=== PATIENT | male | born 1960 | race African-American/Black ===

== ENCOUNTER 2017-12-27 07:06 | Observation (INO) | payer BC ==
[~2017-12-27] VITALS: Ht 170.2 cm; Wt 86.3 kg
[2017-12-27] MEDS ORDERED: DIPHENHYDRAMINE 50 MG/ML, 1ML IVPush ONE (07:30)
[2017-12-27] MEDS ORDERED: DEXAMETHASONE 4 MG/ML, 1ML IVPush ONE (07:30)
[2017-12-27] MEDS ORDERED: SODIUM CHLORIDE FLUSH 10ML SYR IVF ONE (07:30)
[2017-12-27] MEDS ORDERED: FAMOTIDINE 20 MG/2 ML IVPush ONE (07:30)
[2017-12-27] MEDS ORDERED: DEXAMETHASONE 4 MG/ML, 1ML ONE (07:34)
[2017-12-27] MEDS ORDERED: FAMOTIDINE 20 MG/2 ML ONE (07:34)
[2017-12-27] MEDS ORDERED: DIPHENHYDRAMINE 50 MG/ML, 1ML ONE (07:42)
[2017-12-27 07:51] LABS: BASOPHILS # (AUTO) 0.06 x10^3/uL (0-0.1); BASOPHILS % (AUTO) 1 % (0-1); EOSINOPHILS # (AUTO) 0.14 x10^3/uL (0-0.4); EOSINOPHILS % (AUTO) 2 % (1-7); LYMPHOCYTES # (AUTO) 3.29 x10^3/uL (1-3.4); LYMPHOCYTES % (AUTO) 51 % (22-44); MD NO; MEAN CORPUSCULAR HEMOGLOBIN 30.1 pg (27.5-34.5); MEAN CORPUSCULAR HGB CONC 33.7 g/dL (33.2-36.2); MEAN CORPUSCULAR VOLUME 89.4 fL (81-97); MONOCYTES # (AUTO) 0.46 x10^3/uL (0.2-0.8); MONOCYTES % (AUTO) 7 % (2-9); NEUTROPHILS # (AUTO) 2.46 x10^3/uL (1.8-6.8); NEUTROPHILS % (AUTO) 38 % (42-75); PLATELET COUNT 213 x10^3/uL (130-400); RED BLOOD COUNT 4.86 x10^6/uL (4.38-5.82); RED CELL DISTRIBUTION WIDTH 12.9 % (9.4-14.8)
[2017-12-27 08:02] LABS: ANION GAP 9 mmol/L (5-15); CALCIUM 7.8 mg/dL (8.5-10.1); CHLORIDE 109 mmol/L (98-107); CREATININE 0.97 mg/dL (0.7-1.3)
[2017-12-27 11:55] VITALS: BP 124/75
[2017-12-27] MEDS ORDERED: ENOXAPARIN 40 MG/0.4 ML SQ SCH (12:00)
[2017-12-27] MEDS ORDERED: ONDANSETRON 2MG/ML, 2ML IVPush PRN (12:00)
[2017-12-27] MEDS ORDERED: ACETAMINOPHEN 325 MG TABLET PO PRN (12:00)
[2017-12-27 12:10] VITALS: BP 124/75
[2017-12-27 12:35] LABS: HEMOGLOBIN A1C 9.6 % (4.2-6.3)
[2017-12-27 14:12] VITALS: BP 131/85
[2017-12-27] MEDS: metFORMIN 850 MG TABLET PO SCH (16:12)
[2017-12-27] MEDS: DIPHENHYDRAMINE 25 MG CAPSULE PO SCH ×2 (16:12→20:54)
[2017-12-27] MEDS: INSULIN LISPRO 100 UNITS/ML, PEN SQ-INSULIN SCH ×2 (17:05→20:59)
[2017-12-27 19:29] VITALS: BP 133/74
[2017-12-27] MEDS: FAMOTIDINE 20 MG TABLET PO SCH (20:54)
[2017-12-28 02:14] VITALS: BP 132/84
[2017-12-28 07:05] VITALS: BP 123/74
[2017-12-28] MEDS: metFORMIN 850 MG TABLET PO SCH (07:43)
[2017-12-28] MEDS: INSULIN LISPRO 100 UNITS/ML, PEN SQ-INSULIN SCH ×2 (07:44→11:19)
[2017-12-28] MEDS: DIPHENHYDRAMINE 25 MG CAPSULE PO SCH (08:59)
[2017-12-28] MEDS: FAMOTIDINE 20 MG TABLET PO SCH (08:59)
[2017-12-28] MEDS ORDERED: DIPH25CA61 PO (11:37)
[2017-12-28] MEDS ORDERED: FAMO20TA7 PO (11:37)
[2017-12-28] MEDS ORDERED: METF850T PO (11:37)
== END 2017-12-28 12:40 | disposition home or self-care (01) ==
LOC: ED 09:21 → EDIP 09:28 → INTOOBSV 09:28 → 4NOR 11:49 → DCLOUNGE 12-28 12:29
PROVIDERS: ADMIT Internal Medicine Pulmonary Disease; ATTEND Internal Medicine
DX: T78.3XXA Angioneurotic edema, initial encounter (principal); E11.65 Type 2 diabetes mellitus with hyperglycemia; Z91.19 Patient's noncompliance with other medical treatment and regimen; Z87.891 Personal history of nicotine dependence
CPT/HCPCS: 36415; 80048; 82040; 82947; 82962; 83036; 85025; 86160; 86162; 96372; 96374; 96375; 99285; G0378; J1100; J1200; J1650; J1815; J7512; Q0163; S0028

== ENCOUNTER 2017-12-31 17:12 | Emergency (ER) | payer BC ==
[~2017-12-31] VITALS: Ht 170.2 cm; Wt 87.6 kg
[~2017-12-31 17:12] MED LIST: DIPH25CA61 PO; FAMO20TA7 PO; METF850T PO
[2017-12-31 17:13] VITALS: BP 128/79
[2017-12-31] MEDS ORDERED: SODIUM CHLORIDE FLUSH 10ML SYR IVF ONE (18:00)
[2017-12-31] MEDS ORDERED: ASPIRIN 81 MG TABLET CHEW PO ONE (18:00)
[2017-12-31] MEDS ORDERED: KETOROLAC 30 MG/1 ML IVPush ONE (18:00)
[2017-12-31] MEDS ORDERED: KETOROLAC 30 MG/1 ML ONE (18:13)
[2017-12-31] MEDS ORDERED: ASPIRIN 81 MG TABLET CHEW ONE (18:14)
[2017-12-31 18:20] LABS: BASOPHILS # (AUTO) 0.06 x10^3/uL (0-0.1); BASOPHILS % (AUTO) 1 % (0-1); EOSINOPHILS # (AUTO) 0.17 x10^3/uL (0-0.4); EOSINOPHILS % (AUTO) 3 % (1-7); LYMPHOCYTES # (AUTO) 2.25 x10^3/uL (1-3.4); LYMPHOCYTES % (AUTO) 37 % (22-44); MD NO; MEAN CORPUSCULAR HEMOGLOBIN 31.1 pg (27.5-34.5); MEAN CORPUSCULAR HGB CONC 34.3 g/dL (33.2-36.2); MEAN CORPUSCULAR VOLUME 90.5 fL (81-97); MEAN PLATELET VOLUME 8.9 fL (7.4-10.4); MONOCYTES # (AUTO) 0.37 x10^3/uL (0.2-0.8); MONOCYTES % (AUTO) 6 % (2-9); NEUTROPHILS # (AUTO) 3.31 x10^3/uL (1.8-6.8); NEUTROPHILS % (AUTO) 54 % (42-75); PLATELET COUNT 248 x10^3/uL (130-400); RED BLOOD COUNT 5.03 x10^6/uL (4.38-5.82); RED CELL DISTRIBUTION WIDTH 12.6 % (9.4-14.8)
[2017-12-31 18:32] LABS: ALANINE AMINOTRANSFERASE 36 U/L (12-78); ALBUMIN 3.3 g/dL (3.4-5.0); ANION GAP 5 mmol/L (5-15); CALCIUM 8.6 mg/dL (8.5-10.1); CHLORIDE 106 mmol/L (98-107); CREATININE 1.29 mg/dL (0.7-1.3)
[2017-12-31 18:36] LABS: ALKALINE PHOSPHATASE 81 U/L (45-117); BILIRUBIN,TOTAL 0.7 mg/dL (0.2-1.0); TOTAL PROTEIN 7.2 g/dL (6.4-8.2); TROPONIN I < 0.015 ng/mL (0.000-0.045)
== END 2017-12-31 19:22 | disposition home or self-care (01) ==
LOC: ED 19:15
DX: R07.89 Other chest pain (principal); E11.9 Type 2 diabetes mellitus without complications
CPT/HCPCS: 36415; 71045; 80053; 84484; 85025; 93005; 96374; 99285; J1885